=== PATIENT | female | born 1950 | race Caucasian/White ===

== ENCOUNTER 2021-09-13 12:06 | Outpatient (CLI) | payer MEDICARE, OTHER ==
[2021-09-13 14:43] LABS: Hemoglobin 14.8 g/dL (12.0-15.5)
[2021-09-13 15:02] LABS: Anion Gap 16 mmol/L (10-20); BUN (Urea Nitrogen) 13 mg/dL (9.8-20.1); Calc. Creatinine Clearance 0 mL/min (70-130); Calcium 9.9 mg/dL (7.8-10.44); Carbon Dioxide 27 mmol/L (23-31); Chloride 102 mmol/L (98-107); Glucose 86 mg/dL (83-110); Sodium 141 mmol/L (136-145)
== END 2021-09-13 12:07 | disposition home or self-care (01) ==
LOC: CSHLAB 12:06
PROVIDERS: ATTEND Otolaryngology Otolaryngic Allergy
DX: Z01.818 Encounter for other preprocedural examination (principal); Z20.822 Contact with and (suspected) exposure to COVID-19; G47.33 Obstructive sleep apnea (adult) (pediatric)
CPT/HCPCS: 80048; 85014; 85018; 93005; 93010; U0003; U0005

== ENCOUNTER 2021-09-18 05:59 | Day surgery (SDC) | payer MEDICARE ==
[2021-09-13 10:18] VITALS: BMI 30.9
[2021-09-18] MEDS ORDERED: Lidocaine 1% MPF 2 ML VIAL ONE (07:15)
[2021-09-18] MEDS ORDERED: Lidocaine 1% PF 5 ML VIAL ONE (08:28)
[2021-09-18] MEDS ORDERED: PROPOFOL 20 ML ONE ×2 (08:28→08:42)
== END 2021-09-18 09:30 | disposition home or self-care (01) ==
LOC: CSHSDC 05:59
PROVIDERS: ATTEND Otolaryngology Otolaryngic Allergy
PROC: 4A1ZXQZ Monitoring of Sleep, External Approach (ICD-10-PCS; principal; 2021-09-18)
DX: G47.33 Obstructive sleep apnea (adult) (pediatric) (principal); Z79.899 Other long term (current) drug therapy
CPT/HCPCS: J2704

== ENCOUNTER 2021-10-04 10:33 | Outpatient (CLI) | payer MEDICARE | END 2021-10-04 10:34 | disposition home or self-care (01) | LOC: CSHLAB 10:33 | PROVIDERS: ATTEND Otolaryngology Otolaryngic Allergy | DX: Z20.822 Contact with and (suspected) exposure to COVID-19 (principal) | CPT/HCPCS: 87811 ==

== ENCOUNTER 2021-10-09 07:10 | Day surgery (SDC) | payer MEDICARE ==
[2021-10-05 12:24] VITALS: BMI 30.9
[2021-10-09] MEDS ORDERED: EPINEPHrine 1 MG/ML AMP ONE (07:45)
[2021-10-09] MEDS ORDERED: Midazolam HCl 2 mg/2 ml Vial ONE (07:54)
[2021-10-09] MEDS ORDERED: Dexamethasone 4 mg/ml Vial ONE (07:54)
[2021-10-09] MEDS ORDERED: Rocuronium Bromide 10 MG/ML (10ML VIAL) ONE (07:54)
[2021-10-09] MEDS ORDERED: PROPOFOL 20 ML ONE ×2 (07:54→07:55)
[2021-10-09] MEDS ORDERED: Lidocaine 1% PF 5 ML VIAL ONE (07:54)
[2021-10-09] MEDS ORDERED: Ondansetron PF 4 MG/2 ML Vial ONE (07:54)
[2021-10-09] MEDS ORDERED: Fentanyl 250 MCG/5 ML VIAL ONE (07:54)
[2021-10-09] MEDS ORDERED: PHENYLEPHRINE-NS 100 MCG/ML 10 ML SYRINGE ONE (07:55)
[2021-10-09] MEDS ORDERED: ePHEDrine Sulfate 50 MG/10 ML VIAL ONE (07:56)
[2021-10-09] MEDS ORDERED: Lidocaine 1% MPF 2 ML VIAL ONE (08:01)
[2021-10-09] MEDS ORDERED: CEFAZOLIN 2 GM VIAL ONE (08:45)
[2021-10-09] MEDS ORDERED: Lidocaine 1% w/Epinephrine 1:100K 20 ML VIAL ONE (09:35)
[2021-10-09] MEDS ORDERED: Fentanyl 100 MCG/2 ML VIAL ONE (10:50)
[2021-10-09] MEDS ORDERED: Acetaminophen/Codeine 30-300mg Tablet ONE (12:13)
== END 2021-10-09 13:00 | disposition home or self-care (01) ==
LOC: CSHSDC 07:10
PROVIDERS: ATTEND Otolaryngology Otolaryngic Allergy
PROC: 0JH Subcutaneous Tissue and Fascia, Insertion (ICD-10-PCS; principal; 2021-10-09)
PROC: 00HE0MZ Insertion of Neurostimulator Lead into Cranial Nerve, Open Approach (ICD-10-PCS; 2021-10-09)
DX: G47.33 Obstructive sleep apnea (adult) (pediatric) (principal); H61.002 Unspecified perichondritis of left external ear; H90.3 Sensorineural hearing loss, bilateral; J01.90 Acute sinusitis, unspecified; J30.9 Allergic rhinitis, unspecified; I10 Essential (primary) hypertension; E78.5 Hyperlipidemia, unspecified; Z79.899 Other long term (current) drug therapy
CPT/HCPCS: C1820; C1898; J0171; J0690; J1100; J2250; J2405; J2704; J3010

== ENCOUNTER 2023-04-25 12:55 | Outpatient (CLI) | payer MEDICARE | END 2023-04-25 12:56 | disposition home or self-care (01) | LOC: CSHMAMMO 12:55 | PROVIDERS: ATTEND Internal Medicine | DX: N63.10 Unspecified lump in the right breast, unspecified quadrant (principal) | CPT/HCPCS: 77065; G0279 ==

== ENCOUNTER 2023-06-16 14:35 | Emergency (ER) | payer MEDICARE ==
[2023-06-16] MEDS ORDERED: Ketorolac Tromethamine 30 MG (1 mL) VIAL ONE (15:57)
== END 2023-06-16 18:25 | disposition home or self-care (01) ==
LOC: CSHERS 14:35
DX: S09.90XA Unspecified injury of head, initial encounter (principal); M25.561 Pain in right knee; I10 Essential (primary) hypertension; W06.XXXA Fall from bed, initial encounter
CPT/HCPCS: 70450; 96372; J1885